=== PATIENT | male | born 1935 | race Caucasian/White ===

== ENCOUNTER 2018-12-27 10:42 | Outpatient (CLI) | payer MEDICARE, OTHER ==
[2018-12-27 17:24] LABS: INR 3.1 (0.8-1.2); PT - PROTHROMBIN TIME 34.4 secs (9.9-12.6)
== END 2018-12-27 10:43 | disposition home or self-care (01) ==
LOC: LAB.F 10:42
PROVIDERS: ATTEND Nurse Practitioner Family
DX: Z51.81 Encounter for therapeutic drug level monitoring (principal); Z79.01 Long term (current) use of anticoagulants
CPT/HCPCS: 36415; 85610

== ENCOUNTER 2021-03-29 11:27 | Outpatient (CLI) | payer MEDICARE, OTHER ==
[2021-03-29 16:02] LABS: CREATININE 1.9 mg/dL (0.6-1.2); POTASSIUM 4.8 mmol/L (3.5-5.0)
== END 2021-03-29 11:28 | disposition home or self-care (01) ==
LOC: LAB.S 11:27
PROVIDERS: ATTEND Internal Medicine Cardiovascular Disease
DX: R25.2 Cramp and spasm (principal)
CPT/HCPCS: 36415; 80048

== ENCOUNTER 2023-04-04 16:29 | Emergency (ER) | payer MEDICARE, OTHER ==
[2023-04-04 17:01] LABS: HCT - HEMATOCRIT 42.9 % (42.0-52.0); LYMPHOCYTES % (AUTO) 7.2 %; MEAN CORPUSCULAR HEMOGLOBIN 34.1 pg (27.0-31.0); MEAN CORPUSCULAR HGB CONC 32.6 g/dL (32.0-36.0); MEAN CORPUSCULAR VOLUME 104.4 fL (80.0-94.0); MEAN PLATELET VOLUME 12.2 fL (7.4-11.4); MONOCYTES % (AUTO) 0.6 %; PLT - PLATELET COUNT 90 10^3/uL (130-450); RED BLOOD COUNT 4.11 10^6/uL (4.70-6.10); RED CELL DISTRIBUTION WIDTH 13.9 % (12.0-15.0); WHITE BLOOD COUNT 4.7 x10^3/uL (4.8-10.8)
[2023-04-04 17:04] LABS: ABNORMAL LYMPHS % (MANUAL) 0 %
[2023-04-04] MEDS ORDERED: iohexoL-300 100 ML VIAL ONE (17:18)
[2023-04-04 17:29] LABS: ALBUMIN 4.2 g/dL (3.2-5.5); ALBUMIN/GLOBULIN RATIO 1.1 (1.0-2.2); BILIRUBIN,TOTAL 2.8 mg/dL (0.2-1.0); CALCIUM 9.1 mg/dL (8.5-10.3); CREATININE 1.9 mg/dL (0.6-1.2); POTASSIUM 3.8 mmol/L (3.5-5.0); TOTAL PROTEIN 8.2 g/dL (6.7-8.2)
--- NOTE | 2023-04-04 17:32 | XRAY Report ---
PROCEDURE: Chest 1 View X-Ray INDICATIONS: chest pain TECHNIQUE: One view of the chest was acquired. COMPARISON: None. FINDINGS: Surgical changes and devices: Left-sided pacer. Lungs and pleura: No pleural effusions or pneumothorax. Moderate diffuse reticulonodular pulmonary o pacity. Mediastinum: Mediastinal contours appear normal. Heart size is normal. Bones and chest wall: No suspicious bony lesions. Overlying soft tissues appear unremarkable. IMPRESSION: Moderate edema versus atypical pneumonia. Reviewed by: Tico Rhodes MD on 04/04/2023 4:31 PM AKURIEL Approved by: Tico Rhodes MD on 04/04/2023 4:31 PM GEETA Station ID: [id number]
[2023-04-04 17:34] LABS: BAND NEUTROPHILS % (MANUAL) 2 %; DIFFERENTIAL COMMENT MANUAL DIFFERENTIAL; LYMPHOCYTES # (MANUAL) 0.6 10^3/uL (1.5-3.5); LYMPHOCYTES % (MANUAL) 12 %; MONOCYTES # (MANUAL) 0.1 10^3/uL (0.0-1.0); PLATELET ESTIMATE, MANUAL DECREASED (<130,000) (NORMAL); PLATELET MORPHOLOGY NORMAL APPEARANCE (NORMAL); RBC MORPHOLOGY (MULTIPLE) NORMAL APPEARANCE (NORMAL)
--- NOTE | 2023-04-04 17:34 | ED Physician Documentation ---
History of Present Illness - Stated complaint Stated Complaint: SHAKES/ABD PX - Chief complaint Chief Complaint: Abd Pain - History obtained from History obtained from: Patient, Family - History of Present Illness Timing: Today Pain level max: 5 Pain level now: 0 - Additonal information Additional information: Patient is an 87-year-old male who comes to the emergency department with his today. He has had epigastric abdominal pain since approximately 9-10:00 this morning, described as dull and aching. Nothing seems to make the pain better or worse. Around 3:00 today he had shaking chills. This lasted for about 30 minutes. He states that when he arrived to the emergency department he had a bowel movement and his pain is now resolved. Patient has a history of a heart attack about 30 years ago. He also has a pacemaker and ICD in place. History of atrial fibrillation, congestive heart failure. Review of Systems Constitutional: denies: Fever, Chills Nose: denies: Rhinorrhea / runny nose, Congestion PD PAST MEDICAL HISTORY - Past Medical History Past Medical History: Yes Cardiovascular: Congestive heart failure, Hypertension, Coronary artery disease, Atrial fibrillation - Past Surgical History Past Surgical History: Yes Cardiovascular: Pacemaker, AICD Other past surgical history: Iliac artery aneurysms - Allergies Allergies/Adverse Reactions: Allergies Allergy/AdvReac Type Severity Reaction Status Date / Time No Known Drug Allergies Allergy Verified 04/04/23 16:37 - Living Situation Living Situation: reports: With family Living Arrangement: reports: At home - Social History Does the pt have substance abuse?: No - Family History Family history: reports: Non contributory PD ED PE NORMAL - Vitals Vital signs reviewed: Yes - General General: Alert and oriented X 3, No acute distress - HEENT HEENT: PERRL, Moist mucous membranes - Neck Neck: Supple, no meningeal sign - Cardiac Cardiac: RRR, Strong equal pulses - Respiratory Respiratory: No respiratory distress, Clear bilaterally - Abdomen Abdomen: Soft, Non tender, Non distended - Back Back: No CVA TTP, No spinal TTP - Derm Derm: Warm and dry - Extremities Extremities: No edema, No calf tenderness / cord - Neuro Neuro: Alert and oriented X 3 - Psych Psych: Normal mood, Normal affect Results - Vitals Vitals: Vital Signs - 24 hr 04/04/23 04/04/23 04/04/23 16:34 18:30 19:35 Temperature 36.2 C L Heart Rate 113 H 115 H 115 H Respiratory 18 20 24 Rate Blood Pressure 126/72 138/75 H 114/57 L O2 Saturation 100 97 97 04/04/23 04/04/23 20:24 20:45 Temperature Heart Rate 119 H 117 H Respiratory 30 H 28 H Rate Blood Pressure 122/57 L 104/52 L O2 Saturation 93 93 Oxygen O2 Source Room air - EKG (time done) 1713 EKG releavant findings:: EKG personally interpreted by author of this note. Relevant findings are: Rate: Rate (enter#) Rhythm: Paced Intervals: Wide QRS - Labs Labs: Laboratory Tests 04/04/23 04/04/23 04/04/23 16:54 16:54 16:54 WBC 4.7 L RBC 4.11 L Hgb 14.0 Hct 42.9 MCV 104.4 H MCH 34.1 H MCHC 32.6 RDW 13.9 Plt Count 90 L MPV 12.2 H Neut # (Auto) Not Reportable Lymph # (Auto) Not Reportable Emmons # (Auto) Not Reportable Eos # (Auto) Not Reportable Baso # (Auto) Not Reportable Absolute Nucleated RBC Not Reportable Total Counted 100 Band Neuts % (Manual) 2 Abnorm Lymph % (Manual) 0 Nucleated RBC % Not Reportable Neutrophils # (Manual) 4.0 Lymphocytes # (Manual) 0.6 L Monocytes # (Manual) 0.1 Eosinophils # (Manual) 0.0 Basophils # (Manual) 0.0 Differential Comment MANUAL DIFFERENTIAL Platelet Estimate DECREASED (<130,000) Platelet Morphology NORMAL APPEARANCE RBC Morph Micro Appear NORMAL APPEARANCE PT INR Sodium 143 Potassium 3.8 Chloride 103 Carbon Dioxide 22 Anion Gap 18.0 H BUN 47 H Creatinine 1.9 H Estimated GFR (MDRD) 34 L Glucose 153 H Calcium 9.1 Total Bilirubin 2.8 H AST 445 H ALT 212 H Alkaline Phosphatase 202 H Troponin I High Sens 33.8 H* Total Protein 8.2 Albumin 4.2 Globulin 4.0 Albumin/Globulin Ratio 1.1 Lipase 39 Urine Color Urine Clarity Urine pH Ur Specific Montes[place] Urine Protein Urine Glucose (UA) Urine Ketones Urine Occult Blood Urine Nitrite Urine Bilirubin Urine Urobilinogen Ur Leukocyte Esterase Ur Microscopic Review Urine Culture Comments 04/04/23 04/04/23 16:54 20:00 WBC RBC Hgb Hct MCV MCH MCHC RDW Plt Count MPV Neut # (Auto) Lymph # (Auto) Emmons # (Auto) Eos # (Auto) Baso # (Auto) Absolute Nucleated RBC Total Counted Band Neuts % (Manual) Abnorm Lymph % (Manual) Nucleated RBC % Neutrophils # (Manual) Lymphocytes # (Manual) Monocytes # (Manual) Eosinophils # (Manual) Basophils # (Manual) Differential Comment Platelet Estimate Platelet Morphology RBC Morph Micro Appear PT 21.0 H INR 2.0 H Sodium Potassium Chloride Carbon Dioxide Anion Gap BUN Creatinine Estimated GFR (MDRD) Glucose Calcium Total Bilirubin AST ALT Alkaline Phosphatase Troponin I High Sens Total Protein Albumin Globulin Albumin/Globulin Ratio Lipase Urine Color YELLOW Urine Clarity CLEAR Urine pH 5.0 Ur Specific [place] 1.010 Urine Protein NEGATIVE Urine Glucose (UA) NEGATIVE Urine Ketones NEGATIVE Urine Occult Blood NEGATIVE Urine Nitrite NEGATIVE Urine Bilirubin NEGATIVE Urine Urobilinogen 2 H Ur Leukocyte Esterase NEGATIVE Ur Microscopic Review NOT INDICATED Urine Culture Comments NOT INDICATED - Rads (name of study) RUQ US Relevant Findings:: Final report received, See rad report CT abd/pelvis Relevant Findings:: Final report received, See rad report PD Medical Decision Making - ED course Complexity details: reviewed results, re-evaluated patient, considered differential, d/w patient, d/w family, d/w talent consultant ED course: Patient with acute cholecystitis. I discussed the case with our on-call surgeon, Dr. Cody, She reviewed the patient's history and feels that given his extensive cardiac history including heart failure with an unknown echo, cardiac stents and a pacemaker/ICD that he would be better off at a larger facility. Also has a history of iliac artery aneurysms that have been repaired. He is on warfarin as well. Patient was started on Zosyn here. We will attempt to transfer the patient. His care is at [facility] and so we will try there first. There are no beds available at [facility]. There are no beds available at [facility] or [facility] in [place]. We will continue to try to find placement for this patient. I did speak with GI at [facility] who thinks that with his comorbidities of heart failure, pacemaker/ICD, atrial fibrillation, CAD and current anticoagulation, he will likely need a tertiary care facility. Therefore the patient will be signed out to the [facility] emergency department physician awaiting transfer. He was started on Zosyn. CXR - IMPRESSION: Moderate edema versus atypical pneumonia. CT Abd/pel - PROCEDURE: ABDOMEN/PELVIS W INDICATIONS: upper abd pain CONTRAST: 100ml omni 300 TECHNIQUE: After the administration of intravenous contrast, 5 mm thick sections acquired from the diaphragms to the symphysis. 5 mm thick coronal and sagittal reformats were acquired. For radiation dose reduction, the following was used: automated exposure control, adjustment of mA and/or kV according to patient size. COMPARISON: None FINDINGS: Image quality: Excellent. Lung bases and heart: Cardiomegaly. Moderate bibasilar reticulonodular pulmonary opacity. Liver: No solid mass. Gallbladder and biliary tree: Gallbladder demonstrates calculi within its lumen as well as wall thickening and surrounding fat stranding. Spleen: No splenomegaly. Pancreas: No pancreatic ductal dilation. Adrenals: No adrenal nodule. Kidneys and ureters: No hydronephrosis. No renal cystic lesion which requires follow up. No solid mass. Bowel and peritoneum: No bowel distension. No pathologic free fluid. Lymph nodes: No central or retroperitoneal adenopathy. Vessels: No infrarenal aortic aneurysm. Aortoiliac stent graft placement. Right common iliac artery aneurysm. PELVIS Reproductive organs: Unremarkable. Bladder: No abnormal wall thickening, accounting for underdistension. Pelvic lymph nodes: No pelvic adenopathy by size criteria. Bones: No aggressive osseous abnormality. Other: No significant ventral or inguinal hernia. IMPRESSION: 1. Cholecystitis and cholelithiasis. 2. Bibasilar edema versus pneumonia. 3. Cardiomegaly. RUQ US - FINDINGS: Liver: Liver is normal in size and and has coarse echotexture. Gallbladder: There are gallstones measuring up to 3 cm. Gallbladder wall is thickened measuring 11 mm. There is pericholecystic fluid. Biliary ducts: Intrahepatic bile ducts are non-dilated. Extrahepatic bile duct caliber measures 4.2 mm. Normal is 6-7 mm or less in diameter, or 10 mm or less post- cholecystectomy. Pancreas: Visualized portions of the pancreas are sonographically normal. Right kidney: Normal in size and echotexture. Complex cyst with internal septa or clustered cysts are seen in the inferior pole. No hydronephrosis or nephrolithiasis. No solid masses. No complex renal cystic lesions which require follow-up. IMPRESSION: 1. Liver demonstrates coarse echotexture. Please correlate with liver function tests. 2. Cholelithiasis. There is gallbladder wall thickening and pericholecystic fluid. The ultrasound finding is suspicious for acute cholecystitis. Departure - Departure Disposition: 02 Transfer Acute Care Hosp Clinical Impression: Anticoagulated Cholecystitis, acute with cholelithiasis Qualifiers: Biliary obstruction: without biliary obstruction Qualified Code(s): K80.00 - Calculus of gallbladder with acute cholecystitis without obstruction Heart failure Qualifiers: Heart failure type: unspecified Heart failure chronicity: unspecified Qualified Code(s): I50.9 - Heart failure, unspecified Condition: Stable
[2023-04-04] MEDS ORDERED: SODIUM CHLORIDE 0.9% 1,000 ML IV STA (17:47)
[2023-04-04] MEDS ORDERED: iohexoL-300 100 ML VIAL IVP ONE (17:53)
--- NOTE | 2023-04-04 17:57 | CT Report ---
PROCEDURE: ABDOMEN/PELVIS W INDICATIONS: upper abd pain CONTRAST: 100ml omni 300 TECHNIQUE: After the administration of intravenous contrast, 5 mm thick sections acquired from the diaphragms to the symphysis. 5 mm thick coronal and sagittal reformats were acquired. For radiation dose reducti on, the following was used: automated exposure control, adjustment of mA and/or kV according to janice ent size. COMPARISON: None FINDINGS: Image quality: Excellent. Lung bases and heart: Cardiomegaly. Moderate bibasilar reticulonodular pulmonary opacity. Liver: No solid mass. Gallbladder and biliary tree: Gallbladder demonstrates calculi within its lumen as well as wall thick ening and surrounding fat stranding. Spleen: No splenomegaly. Pancreas: No pancreatic ductal dilation. Adrenals: No adrenal nodule. Kidneys and ureters: No hydronephrosis. No renal cystic lesion which requires follow up. No solid mas s. Bowel and peritoneum: No bowel distension. No pathologic free fluid. Lymph nodes: No central or retroperitoneal adenopathy. Vessels: No infrarenal aortic aneurysm. Aortoiliac stent graft placement. Right common iliac artery a neurysm. PELVIS Reproductive organs: Unremarkable. Bladder: No abnormal wall thickening, accounting for underdistension. Pelvic lymph nodes: No pelvic adenopathy by size criteria. Bones: No aggressive osseous abnormality. Other: No significant ventral or inguinal hernia. IMPRESSION: 1. Cholecystitis and cholelithiasis. 2. Bibasilar edema versus pneumonia. 3. Cardiomegaly. Reviewed by: Tico Rhodes MD on 04/04/2023 4:56 PM AKDT Approved by: Tico Rhodes MD on 04/04/2023 4:56 PM AKDT Station ID: [id number]
[2023-04-04] MEDS ORDERED: PIPERACILLIN/TAZOBACTAM 3.375 GM in SODIUM CHLORIDE 0.9% MINIBAG 100 ML IV STA (17:58)
[2023-04-04] MEDS ORDERED: PIPERACILLIN/TAZOBACTAM 4.5 GM in SODIUM CHLORIDE 0.9% MINIBAG 100 ML IV STA (17:58)
--- NOTE | 2023-04-04 19:47 | Ultrasound Report ---
PROCEDURE: Abdomen Limited INDICATIONS: RUQ abd pain TECHNIQUE: Real-time focused scanning was performed of the abdomen, with image documentation. COMPARISONS: None. FINDINGS: Liver: Liver is normal in size and and has coarse echotexture. Gallbladder: There are gallstones measuring up to 3 cm. Gallbladder wall is thickened measuring 11 mm . There is pericholecystic fluid. Biliary ducts: Intrahepatic bile ducts are non-dilated. Extrahepatic bile duct caliber measures 4.2 mm. Normal is 6-7 mm or less in diameter, or 10 mm or less post-cholecystectomy. Pancreas: Visualized portions of the pancreas are sonographically normal. Right kidney: Normal in size and echotexture. Complex cyst with internal septa or clustered cysts are seen in the inferior pole. No hydronephrosis or nephrolithiasis. No solid masses. No complex renal cystic lesions which require follow-up. IMPRESSION: 1. Liver demonstrates coarse echotexture. Please correlate with liver function tests. 2. Cholelithiasis. There is gallbladder wall thickening and pericholecystic fluid. The ultrasound fin ding is suspicious for acute cholecystitis. Reviewed by: Luis Miguel Noble MD on 04/04/2023 7:46 PM PDT Approved by: Luis Miguel Noble MD on 04/04/2023 7:46 PM PDT Station ID: [id number]
[2023-04-04 20:07] LABS: BILIRUBIN,URINE NEGATIVE (NEGATIVE); GLUCOSE, URINE (UA) NEGATIVE (NEGATIVE); KETONES,URINE (UA) NEGATIVE (NEGATIVE); LEUKOCYTE ESTERASE, URINE NEGATIVE (NEGATIVE); NITRITE,URINE NEGATIVE (NEGATIVE); OCCULT BLOOD,URINE NEGATIVE (NEGATIVE); PROTEIN,URINE NEGATIVE (NEGATIVE); UROBILINOGEN,URINE 2 E.U./dL (NORMAL)
[2023-04-04 20:13] LABS: CLARITY,URINE CLEAR (CLEAR)
[2023-04-04] MEDS ORDERED: diltiaZEM INJ 5 MG/ML VIAL IVP STA (20:31)
[2023-04-05] MEDS: PIPERACILLIN/TAZOBACTAM 3.375 GM in SODIUM CHLORIDE 0.9% MINIBAG 100 ML IV SCH ×4 (00:01→17:39)
[2023-04-05] MEDS ORDERED: SODIUM CHLORIDE 0.9% 1,000 ML IV STA ×2 (00:15→02:32)
--- NOTE | 2023-04-05 02:18 | ED Physician Documentation ---
ED Addendum - Addendum Addendum: Patient signed out to me by Dr. Khalil. Patient has cholecystitis and is awaiting transfer to facility As he has a significant cardiac history and is more complicated than what we are able to care for here. Patient's blood pressures have decreased. We will give him an IV fluid bolus. Blood cultures x2 and lactic acid also ordered 04/05/23 01:48 - D/W GI at [facility], Dr. Ndiaye. As it is unclear whether the patient has a stone or not she recommends speaking to surgery first. 0223 - B/P 101/60. 0224 - D/W Dr. Huerta (Surgery at [facility]). She would be happy to consult on the patient but request that medicine admit the patient. 04/05/23 02:58 - D/W Dr. Mota (Hospitalist at [facility]). Accepts the patient for transfer. He requested that we obtain an MRCP. I explained that we are not able to do that at our facility as the patient has a pacemaker and Our MRI protocols do not allow us to perform MRIs on those with pacemakers. However there are no beds available so patient is on their wait list. 04/05/23 07:12 Bilirubin and LFTs have increased. The patient remains boarding in the emergency department awaiting transfer. He is signed out to the oncoming physician at shift change.
[2023-04-05 06:27] LABS: BASOPHILS % (AUTO) 0.2 %; HCT - HEMATOCRIT 41.4 % (42.0-52.0); HGB - HEMOGLOBIN 13.1 g/dL (14.0-18.0); LYMPHOCYTES # (AUTO) 0.3 10^3/uL (1.5-3.5); LYMPHOCYTES % (AUTO) 3.5 %; MEAN CORPUSCULAR HEMOGLOBIN 33.1 pg (27.0-31.0); MEAN CORPUSCULAR HGB CONC 31.6 g/dL (32.0-36.0); MEAN CORPUSCULAR VOLUME 104.5 fL (80.0-94.0); MEAN PLATELET VOLUME 12.5 fL (7.4-11.4); MONOCYTES # (AUTO) 0.4 10^3/uL (0.0-1.0); MONOCYTES % (AUTO) 4.6 %; NEUTROPHILS # (AUTO) 8.6 10^3/uL (1.5-6.6); NEUTROPHILS % (AUTO) 90.9 %; PLT - PLATELET COUNT 60 10^3/uL (130-450); RED BLOOD COUNT 3.96 10^6/uL (4.70-6.10); RED CELL DISTRIBUTION WIDTH 14.2 % (12.0-15.0); WHITE BLOOD COUNT 9.5 x10^3/uL (4.8-10.8)
[2023-04-05 06:45] LABS: ALBUMIN 3.5 g/dL (3.2-5.5); BILIRUBIN,TOTAL 4.5 mg/dL (0.2-1.0); CALCIUM 8.5 mg/dL (8.5-10.3); CREATININE 2.2 mg/dL (0.6-1.2); POTASSIUM 3.7 mmol/L (3.5-5.0)
--- NOTE | 2023-04-05 08:23 | ED Physician Documentation ---
ED Addendum - Addendum Addendum: 04/05/23 08:[address] Jones at 7 AM shift change. Briefly 87-year-old gentleman with cardiomyopathy and AICD in place has cholecystitis with an obstructive pattern. We are looking for a bed for him with GI and cardiology capabilities given the complexity of his underlying medical care and the obstructive pattern. His labs did trend worse this morning with regards to obstruction. Spoke with Dr. English, surgeon at [facility] at this time and she agrees patient should be transferred but defers to the hospitalist service for admission which will be about half an hour. 04/05/23 09:22 Accepted at this time to [facility] by the hospitalist, Dr. Salgado. It may be a little bit before bed is available. 04/05/23 18:00 We were notified this afternoon that his blood cultures have become positive. PCR testing suggests that E. coli will be the isolate. I am told he will be going to [facility] within the next hour. Disposition: Transferred to [facility] Condition: Guarded Diagnosis: 1. Cholecystitis 2. Gram-negative bacteremia 3. Cardiomyopathy
[2023-04-05] MEDS ORDERED: D5.45NS W/20 MEQ KCL 1,000 ML IV STA (10:17)
[2023-04-05 18:11] VITALS: BP 98/62
== END 2023-04-05 19:45 | disposition short-term general hospital (02) ==
LOC: ED 16:29
DX: K80.00 Calculus of gallbladder with acute cholecystitis without obstruction (principal); R78.81 Bacteremia; I95.9 Hypotension, unspecified; I50.9 Heart failure, unspecified; I48.91 Unspecified atrial fibrillation; I42.9 Cardiomyopathy, unspecified; Z95.810 Presence of automatic (implantable) cardiac defibrillator; Z79.01 Long term (current) use of anticoagulants; Z75.1 Person awaiting admission to adequate facility elsewhere; Z20.822 Contact with and (suspected) exposure to COVID-19
CPT/HCPCS: 36415; 71045; 74177; 76705; 80053; 81003; 83605; 83690; 84484; 85025; 85610; 87040; 87150; 87181; 87635; 93005; 96361; 96365; 96366; 99285; Q9967; 81001; 87086